=== PATIENT | female | born 1970 | race Caucasian/White ===

== ENCOUNTER 2017-03-26 19:38 | Inpatient (IN) | payer OTHER ==
[~2017-03-26] VITALS: Ht 152.4 cm; Wt 55.9 kg
[2017-03-27 00:12] LABS: BASOPHIL % 0.7 % (0-2); PLATELET COUNT 205 x10^3mcL (130-400); RED CELL DISTRIBUTION WIDTH 13.8 % (11.5-14.5)
[2017-03-27 00:28] LABS: CALCIUM 8.7 mg/dL (8.5-10.1); CARBON DIOXIDE 29.4 mmol/L (21-32); CHLORIDE SERUM 105 mmol/L (98-107); CREATININE SERUM 0.7 mg/dL (0.6-1.0); GFR1 > 60 mL/min; GLUCOSE SERUM 92 mg/dL (74-106); POTASSIUM SERUM 4.1 mmol/L (3.5-5.1); SODIUM SERUM 141 mmol/L (136-145)
[2017-03-27 00:32] LABS: ALBUMIN 3.7 g/dL (3.4-5.0); ALKALINE PHOSPHATASE 77 U/L (46-116); ALT/SGPT 14 U/L (14-59); AMYLASE 62 U/L (25-115); AST/SGOT 14 U/L (15-37); BILIRUBIN TOTAL 0.2 mg/dL (0.20-1.00); LIPASE 126 IU/L (73-393); TOTAL PROTEIN, SERUM 6.9 g/dL (6.4-8.2)
[2017-03-27] MEDS ORDERED: AMBIEN10 MG PO (02:54)
[2017-03-27] MEDS ORDERED: AMITRIPTYLINE H50 MG PO (02:56)
[2017-03-27] MEDS ORDERED: AMLODIPINE BES2.5 M1 PO (02:56)
[2017-03-27] MEDS ORDERED: GABAPENTIN400 M1 PO (02:57)
[2017-03-27] MEDS ORDERED: EPANED1 MG/ML PO (02:57)
[2017-03-27] MEDS ORDERED: ZOF4 PO (02:59)
[2017-03-27] MEDS ORDERED: MORPHINE SULFAT30 M2 PO (02:59)
[2017-03-27] MEDS ORDERED: MS CONTIN60 M1 PO (02:59)
[2017-03-27 03:21] VITALS: BP 153/101
[2017-03-27 03:49] LABS: CHOLESTEROL/HDL RATIO 3.2; MAGNESIUM 2.2 mg/dL (1.8-2.4); PHOSPHOROUS 3.9 mg/dL (2.5-4.9)
[2017-03-27 03:55] LABS: T3 TOTAL 1.18 ng/mL
[2017-03-27 04:03] LABS: FREE T4 1.05 ng/dL (0.76-1.46); T4(THYROXINE) 8.1 ug/dL (4.7-13.3)
[2017-03-27 04:55] VITALS: BP 136/74; BP 144/99
[2017-03-27 09:44] VITALS: BP 137/98
[2017-03-27 09:46] LABS: AMPHETAMINE QUAL UR NONE DETECTED (NEG <=1000)
[2017-03-27 10:12] LABS: microscopic required? YES; urine erythrocyte TRACE (NEGATIVE)
[2017-03-27 13:25] VITALS: BP 119/78
[2017-03-27 17:10] VITALS: BP 144/70
[2017-03-27 21:08] VITALS: BP 110/83; BP 154/68
[2017-03-28 05:25] VITALS: BP 122/82
[2017-03-28 09:15] VITALS: BP 123/86
[2017-03-28 13:41] VITALS: BP 120/83
[2017-03-28 17:48] VITALS: BP 118/82
[2017-03-28 21:17] VITALS: BP 123/81
[2017-03-29 05:34] VITALS: BP 114/82
[2017-03-29 07:04] LABS: BASOPHIL % 0.5 % (0-2); PLATELET COUNT 166 x10^3mcL (130-400); RED CELL DISTRIBUTION WIDTH 13.9 % (11.5-14.5)
[2017-03-29 07:15] LABS: CALCIUM 8.4 mg/dL (8.5-10.1); CARBON DIOXIDE 28.1 mmol/L (21-32); CHLORIDE SERUM 109 mmol/L (98-107); CREATININE SERUM 0.6 mg/dL (0.6-1.0); GFR1 > 60 mL/min; GLUCOSE SERUM 82 mg/dL (74-106); MAGNESIUM 1.9 mg/dL (1.8-2.4); PHOSPHOROUS 4.5 mg/dL (2.5-4.9); POTASSIUM SERUM 4.4 mmol/L (3.5-5.1); SODIUM SERUM 145 mmol/L (136-145)
[2017-03-29 09:23] VITALS: BP 112/74
[2017-03-29 09:47] VITALS: BP 112/74
== END 2017-03-29 12:22 | disposition home or self-care (01) | DRG 392 ==
LOC: ED 19:38 → DU 03-27 02:31
PROVIDERS: Family Medicine; Specialist; ADMIT Family Medicine
DX: K59.03 Drug induced constipation (principal); F32.9 Major depressive disorder, single episode, unspecified; G47.00 Insomnia, unspecified; R31.9 Hematuria, unspecified; I10 Essential (primary) hypertension; G89.29 Other chronic pain; Z96.642 Presence of left artificial hip joint; T40.2X5A Adverse effect of other opioids, initial encounter; Y92.018 Other place in single-family (private) house as the place of occurrence of the external cause; Z68.24 Body mass index [BMI] 24.0-24.9, adult; F17.210 Nicotine dependence, cigarettes, uncomplicated
CPT/HCPCS: 83880; 84439; J1170; J1885; J2270; J2405; J3010; J3490; J7030; Q0092; Q9967